=== PATIENT | male | born 1990 | race Two or more races ===

== ENCOUNTER 2020-08-27 14:56 | Emergency (ER) | payer MEDICAID ==
[~2020-08-27] VITALS: Ht 167.6 cm; Wt 68.0 kg
[2020-08-27 17:03] VITALS: BP 118/71
== END 2020-08-27 17:04 | disposition home or self-care (01) ==
LOC: ER 14:56
DX: N39.0 Urinary tract infection, site not specified (principal)
CPT/HCPCS: 76705; 81002